=== PATIENT | male | born 1965 | race Caucasian/White ===

== ENCOUNTER → 2023-05-16 08:09 | Outpatient (REF) | payer OTHER, SELFPAY | LOC: DHCBC HW 08:09 | PROVIDERS: ATTENDING PHYSICIAN Internal Medicine Cardiovascular Disease; FAMILY PHYSICIAN Family Medicine | DX: I34.0 Nonrheumatic mitral (valve) insufficiency (principal) | CPT/HCPCS: 93306 ==

== ENCOUNTER → 2024-04-28 08:06 | Outpatient (REF) | payer OTHER, SELFPAY | LOC: RCS 08:06 | PROVIDERS: ATTENDING PHYSICIAN Internal Medicine Cardiovascular Disease; FAMILY PHYSICIAN Family Medicine | DX: I34.0 Nonrheumatic mitral (valve) insufficiency (principal); I10 Essential (primary) hypertension | CPT/HCPCS: 93306 ==

== ENCOUNTER → 2024-11-17 08:04 | Outpatient (REF) | payer OTHER, SELFPAY | LOC: RCS 08:04 | PROVIDERS: ATTENDING PHYSICIAN Internal Medicine Cardiovascular Disease; FAMILY PHYSICIAN Family Medicine | DX: I34.0 Nonrheumatic mitral (valve) insufficiency (principal) | CPT/HCPCS: 93306 ==

== ENCOUNTER 2024-12-19 07:00 | Day surgery (SDC) | payer OTHER, SELFPAY ==
[2024-12-19] VITALS (17 sets, daily range): BP systolic 100–140; BP diastolic 54–82; BMI 28.8
--- NOTE | 2024-12-19 10:34 | ITS.CL.PN ---
B[employer]visor - Procedure Note
Procedure
Procedure Note:
CARDIAC CATHETERIZATION REPORT
Date of Procedure: 12/19/2024
Referring: Dr. Eddie Baxter MD
Indication: preoperative assessment prior to planned mitral valve surgery
PROCEDURE(S)
1. right heart catheterization
2. left heart catheterization
3. coronary angiography
ACCESS
1. 6F right radial artery (closure: radial band)
2. 5F right antecubital vein (closure: manual hemostasis)
CATHETERS
1. 5F [place]
2. 6F JR4
3. 6F JL3.5
MODERATE SEDATION: 25 minutes of moderate sedation was utilized. An independent medical assembler was present to assist with and help manage the patient's level of consciousness and physiologic status.
HEMODYNAMIC DATA
LV 115/12 (EDP 24) mmHg
AO 112/65 (mean 86) mmHg
RA 10 mmHg
RV 32/8 (EDP 14) mmHg
PA 34/18 (mean 26) mmHg
PCWP 22 mmHg
SaO2 91.7%
SvO2 69.6%
Hb 13.6 g/dL
CO/CI 6.46/3.06 L/min/m2
SVR 942 dsc*-5
PVR 0.6 Wood units
CORONARY ANGIOGRAPHY
Dominance: Right
LM: Large, normal
LAD: Large vessel giving rise to two moderate caliber diagonal branches and wrapping around the apex. There are trivial luminal irregularities only.
LCx: Large vessel giving rise to a moderate caliber OM1 and small OM2. There are trivial luminal irregularities only.
RCA: Large vessel giving rise to a moderate caliber RPDA, moderate caliber RPL1, small RPL2, moderate caliber RPL3, and moderate caliber RPL4. There are trivial luminal irregularities only.
RADIATION: dose 164 mGy; DAP 9.5 Gy*cm2; fluoroscopy time 13.1 min
CONCLUSIONS
1. Moderately elevated biventricular filling pressures, mild pulmonary hypertension, and normal cardiac output.
2. No aortic stenosis on hemodynamic pullback
3. Normal coronary arteries and a right dominant system
RECOMMENDATIONS
1. Primary prevention of coronary artery disease
2. Proceed with mitral valve surgery
Copy to: Dr. Jorge Taylor MD (extension worker); Dr. Eddie Baxter MD (cardiac surgeon); Dr. Letty Flores MD (PCP)
Signed: Wyatt Quispe MD, PhD
== END 2024-12-19 14:20 | disposition home or self-care (01) ==
LOC: CATH 07:00
PROVIDERS: ATTENDING PHYSICIAN Internal Medicine Cardiovascular Disease; FAMILY PHYSICIAN Family Medicine
DX: Z01.818 Encounter for other preprocedural examination (principal); I34.0 Nonrheumatic mitral (valve) insufficiency; I27.20 Pulmonary hypertension, unspecified; Z79.899 Other long term (current) drug therapy
CPT/HCPCS: 93312; 93320; 93325; 93460; 99152; 99153; C1769; C1894; Q9967